=== PATIENT | male | born 1980 | race Caucasian/White ===

== ENCOUNTER 2018-09-16 09:46 | Inpatient (IN) | payer OTHER ==
[~2018-09-16] VITALS: Ht 188 cm; Wt 101.2 kg
[2018-09-16 09:50] VITALS: BP 186/110
--- NOTE | 2018-09-16 09:56 | NUR ---
PT AMBULATES TO BED 1
--- NOTE | 2018-09-16 10:00 | NUR ---
BIB SELF C/O NOT FEELING WELL X 10 DAYS , DENIES N/V/D, PT STATES INCREASE URINATION, INCREASE THIRST. PT ALSO C/O SLIGHTLY HEADACHE THIS AM. HX; HTN. RX; VALTARTAN 160.SKIN IS PINK/WARM/DRY; AAOX4 WITH EVEN AND STEADY GAIT; LUNGS CLEAR BL; HR EVEN AND REGULAR; PT DENIES ANY FEVER, CP, SOB, OR COUGH AT THIS TIME; PATIENT STATES PAIN OF 2/10 AT THIS TIME;BP 178/108 AT THIS TIME. PATIENT POSITIONED FOR COMFORT; HOB ELEVATED; BEDRAILS UP X2; BED DOWN. ER MD MADE AWARE OF PT STATUS.
--- NOTE | 2018-09-16 10:09 | NUR ---
Patient being evaluated by physician at bedside.
[2018-09-16] MEDS ORDERED: METOPROLOL 5 MG/5 ML VIAL IVP ONE (10:25)
[2018-09-16] MEDS ORDERED: cloNIDine 0.1 MG TAB PO ONE (10:25)
[2018-09-16 10:57] LABS: BASOPHILS % (AUTO) 0.3 % (0.0-2.0); EOSINOPHILS # (AUTO) 0.1 K/uL (0-0.4); EOSINOPHILS % (AUTO) 2.1 % (0.0-4.0); HEMATOCRIT 49.6 % (36-52); HEMOGLOBIN 16.8 g/dL (12.0-18.0); LYMPHOCYTES # (AUTO) 2.6 K/uL (2.0-11.5); LYMPHOCYTES % (AUTO) 37.5 % (20.5-51.1); MEAN CORPUSCULAR HEMOGLOBIN 29 pg (27-31); MEAN CORPUSCULAR HGB CONC 34 g/dL (33-37); MEAN CORPUSCULAR VOLUME 84.5 fL (80-94); MONOCYTES # (AUTO) 0.5 K/uL (0.8-1.0); MONOCYTES % (AUTO) 6.5 % (1.7-9.3); NEUTROPHILS # (AUTO) 3.7 K/uL (1.8-7.7); NEUTROPHILS % (AUTO) 53.6 % (42.2-75.2); PLATELET COUNT (AUTO) 219 K/uL (140-450); RED BLOOD CELL COUNT(AUTO) 5.87 MIL/uL (4.20-6.10)
--- NOTE | 2018-09-16 10:59 | NUR ---
PT RETURNED FROM CT
[2018-09-16 11:07] LABS: ANION GAP 11.8 (8-16); CARBON DIOXIDE 30.1 mmol/L (21-32); POTASSIUM 3.9 mmol/L (3.5-5.1)
[2018-09-16 11:22] LABS: ALBUMIN 4.1 g/dL (3.4-5.0); TOTAL BILIRUBIN 1.2 mg/dL (0.0-1.0)
[2018-09-16 11:26] LABS: THYROID STIMULATING HORMONE 1.61 uIU/mL (0.34-3.74)
[2018-09-16 11:35] LABS: PROTHROMBIN TIME 9.7 secs (10.8-13.4)
[2018-09-16 11:37] LABS: APPEARANCE,URINE CLEAR (CLEAR); COLOR,URINE YELLOW (YELLOW); UGLUCOSE 2+ (NEGATIVE)
[2018-09-16 11:38] LABS: BILIRUBIN,URINE NEGATIVE (NEGATIVE); BLOOD, URINE TRACE (NEGATIVE); LEUKOCYTE ESTERASE ,URINE NEGATIVE (NEGATIVE); NITRITE, URINE NEGATIVE (NEGATIVE)
[2018-09-16 11:50] LABS: RBC,URINE 0-5 (RARE) /HPF (0-5); WBC,URINE 0-5 (RARE) /HPF (0-5)
[2018-09-16 11:51] LABS: HYALINE CASTS, URINE 0-10 /LPF (None Seen)
[2018-09-16] MEDS ORDERED: ONDANSETRON 4 MG/2 ML VIAL IVP ONE (12:15)
[2018-09-16] MEDS ORDERED: HYDROmorphone 1 MG/ML AMP IVP ONE (12:15)
[2018-09-16] MEDS ORDERED: ENALAPRILAT 2.5 MG/2 ML VIAL IVP ONE (12:15)
[2018-09-16] MEDS ORDERED: METOCLOPRAMIDE 10 MG/2 ML INJ VIAL IVP ONE (12:15)
[2018-09-16] MEDS ORDERED: VALS160T2 PO (12:31)
[2018-09-16] MEDS: NACL 0.9% 1,000 ML IV SCH ×2 (12:39→21:26)
[2018-09-16] MEDS ORDERED: ACETAMINOPHEN 325 MG TAB PO PRN (12:40)
[2018-09-16] MEDS ORDERED: HYDROcodone/APAP 5/325 MG 1 TAB TAB PO PRN (12:40)
[2018-09-16] MEDS ORDERED: DOCUSATE SODIUM 100 MG GELCAP PO PRN (12:40)
[2018-09-16] MEDS ORDERED: LORazepam 2 MG/ML VIAL IM/IVP PRN (12:40)
[2018-09-16] MEDS ORDERED: ONDANSETRON 4 MG/2 ML VIAL IM/IVP PRN (12:40)
[2018-09-16] MEDS ORDERED: ZOLPIDEM 5 MG TAB PO PRN (12:40)
[2018-09-16] MEDS ORDERED: ACETAMINOPHEN EXTRA STRENGTH 500 MG TAB PO ONE (13:00)
[2018-09-16] MEDS ORDERED: ACETAMINOPHEN EXTRA STRENGTH 500 MG TAB ONE (13:03)
--- NOTE | 2018-09-16 13:10 | NUR ---
PT TAKEN TO THE FLOOR BY [facility]
[2018-09-16 13:20] LABS: CHOL/HDL RATIO 7.6 (1-4.5); PHOSPHORUS 3.5 mg/dL (2.5-4.9); THYROID STIMULATING HORMONE 1.69 uIU/mL (0.34-3.74)
--- NOTE | 2018-09-16 13:25 | NUR ---
Patient will be admitted to care of DR HEMPHILL. Admited to [facility]. Will go to room 111B. Belongings list completed. Report to JOBY CARMEN .
[2018-09-16] MEDS ORDERED: DEXTROSE 50% 50 ML SYR IVP PRN (13:35)
[2018-09-16 14:02] LABS: BARBITURATE, URINE NEGATIVE ng/ml (NEG <=200); BENZODIAZEPINE, URINE NEGATIVE ng/mL (NEG <=200); CANNABINOID, URINE NEGATIVE ng/mL (NEG <=50); COCAINE, URINE NEGATIVE ng/mL (NEG <=300); OPIATE, URINE NEGATIVE ng/mL (NEG <=2000); PHENCYCLIDINE SCREEN,URINE NEGATIVE ng/mL (NEG <=25)
[2018-09-16] MEDS ORDERED: metFORMIN 500 MG TAB PO SCH (15:30)
[2018-09-16 16:00] VITALS: BP 100/60
[2018-09-16] MEDS: BLOOD GLUCOSE MONITORING 1 DEV DEV FS SCH ×2 (16:30→20:50)
[2018-09-16] MEDS: INSULIN LISPRO SLIDING SCALE 100 UNITS/ML VIAL SUBQ PRN ×2 (17:53→20:55)
--- NOTE | 2018-09-16 19:34 | NUR ---
ENDORSED PT TO [facility] LAMINATOR OPERATOR RN FOR CONTINUITY OF CARE. PT IN STABLE CONDITION.
--- NOTE | 2018-09-16 19:35 | NUR ---
RECEIVED PT FROM SEBASTIAN CARMEN. PATIENT AAOX4 ON BED REST IV INFUSING WELL ON RIGHT FOREARM. ON TELE SR BBB. VISITOR AT BEDSIDE INITIAL ASSESSMENT DONE. CALL LIGHT WITHIN REACH.
[2018-09-16 20:00] VITALS: BP 108/72
[2018-09-16] MEDS ORDERED: ATORVASTATIN 20 MG TAB PO SCH (21:00)
--- NOTE | 2018-09-16 21:30 | NUR ---
BLOOD SUGAR TESTED, 222 COVERAGE WITH 4 UNITS SUBQ OF HUMALOG ON LEFT ARM.
--- NOTE | 2018-09-16 23:00 | NUR ---
PATIENT REMAINS STABLE NO DISTRESS NOTED SR BBB
[2018-09-17] VITALS: BP 125/89
[2018-09-17 04:00] VITALS: BP 97/61
--- NOTE | 2018-09-17 04:00 | NUR ---
PT VOIDING WELL IV ON RT ARM INFUSING WELL ON TELEMETRY SR REMAIN STABLE
[2018-09-17] MEDS: NACL 0.9% 1,000 ML IV SCH (05:46)
[2018-09-17] MEDS: BLOOD GLUCOSE MONITORING 1 DEV DEV FS SCH (06:35)
[2018-09-17] MEDS: INSULIN LISPRO SLIDING SCALE 100 UNITS/ML VIAL SUBQ PRN (06:37)
--- NOTE | 2018-09-17 07:07 | NUR ---
BLOOD SUGAR TEST 263 COVERAGE WIT 6 UNITS SUBQ HUMALOG FOLLOW PROTOCOL
--- NOTE | 2018-09-17 07:30 | NUR ---
RECEIVED REPORT FROM CRA NURSE. PT IS SLEEPING IN BED BUT EASILY AWAKEN, PT IS AAOX4, AMBULATORY, IT IS ON ROOM AIR, NO S/S OF RESPIRATORY DISTRESS OR DISCOMFORT NOTED, SKIN IS INTACT, IV IS ON THE RIGHT AC, PATENT, INTACT, RUNNING WELL, DISCUSSED PLAN OF CARE WITH PT, PT VERBALIZED UNDERSTANDING, PT'S IS AT BEDSIDE, CALL LIGHT IS WITHIN REACH, WILL CONTINUE TO MONITOR.
--- NOTE | 2018-09-17 07:45 | NUR ---
PATIENT HAS BEEN SCREENED AND CATEGORIZED HIGH NUTRITION RISK. PATIENT WILL BE SEEN WITHIN 1-2 DAYS OF ADMISSION. 09/17/18-09/18/[address]
[2018-09-17 08:00] VITALS: BP 120/74
[2018-09-17] MEDS ORDERED: metFORMIN 500 MG TAB PO SCH (08:00)
--- NOTE | 2018-09-17 08:01 | NUR ---
TOOK PATIENT'S VITAL SIGNS. ALL RESULTS WITHIN NORMAL LIMITS. PATIENT COMPLAINED OF A DULL HEADACHE OF 2/10 PAIN SCALE. WILL MEDICATE WITH TYLENOL.
--- NOTE | 2018-09-17 08:23 | NUR ---
PATIENT REFUSED SCHEDULED METFORMIN. ADMINISTERED TYLENOL FOR 2/10 PAIN. WILL CONTINUE TO MONITOR FOR MED EFFECTIVENESS. ALL OTHER NEEDS MET AT THIS TIME. AT BEDSIDE, CALL LIGHT WITHIN REACH AND BED IN LOWEST POSITION.
[2018-09-17] MEDS ORDERED: METF500T PO (08:26)
[2018-09-17] MEDS ORDERED: ATOR20TA40 PO (08:26)
[2018-09-17] MEDS ORDERED: ACET-1182 PO (08:28)
[2018-09-17] MEDS ORDERED: HUMSLIDE SUBQ (08:45)
[2018-09-17] MEDS ORDERED: VAS10 PO ×2 (09:05→10:54)
[2018-09-17 11:23] VITALS: BP 120/74
--- NOTE | 2018-09-17 11:30 | NUR ---
DISCHARGE INSTRUCTIONS GIVEN, IV REMOVED, CATHETER TIP INTACT, ID WRIST BAND REMOVED. PT STABLE UPON DISCHARGE ACCOMPANIED BY HIS .
[2018-09-17 15:19] LABS: HEPATITIS A ANTIBODY IGM Negative (Negative); HEPATITIS B CORE AB TOTAL Negative (Negative); HEPATITIS B SURFACE ANTIBODY Reactive (.); HEPATITIS B SURFACE ANTIGEN Negative (Negative)
== END 2018-09-17 11:45 | disposition home or self-care (01) | DRG 305 ==
LOC: MED 09:46 → MTU 12:44
PROVIDERS: ADMIT General Practice; ATTEND General Practice
DX: I16.0 Hypertensive urgency (principal); I10 Essential (primary) hypertension; E11.65 Type 2 diabetes mellitus with hyperglycemia; K76.0 Fatty (change of) liver, not elsewhere classified; G44.209 Tension-type headache, unspecified, not intractable; R31.9 Hematuria, unspecified; E78.5 Hyperlipidemia, unspecified; E80.6 Other disorders of bilirubin metabolism; R74.0 Nonspecific elevation of levels of transaminase and lactic acid dehydrogenase [LDH]; Z82.49 Family history of ischemic heart disease and other diseases of the circulatory system; Z79.899 Other long term (current) drug therapy
CPT/HCPCS: 36415; 70450; 71045; 76700; 80053; 80305; 81001; 82150; 82378; 82948; 83036; 83690; 83735; 83880; 84100; 84134; 84443; 84484; 85025; 85610; 85730; 86704; 86706; 86708; 86709; 86803; 87081; 87340; 93005; 96374; 96375; 99285; J1170; J1815; J2405; J2765; J3490; J7030; Q0092